=== PATIENT | female | born 1995 | race Caucasian/White ===

== ENCOUNTER 2017-02-16 14:51 | Emergency (ER) | payer BC ==
[~2017-02-16] VITALS: Ht 165.1 cm; Wt 96.9 kg
[2017-02-16 16:15] LABS: BLOOD UREA NITROGEN 14 mg/dL (7-18)
[2017-02-16 16:54] VITALS: BP 121/72
== END 2017-02-16 16:56 | disposition home or self-care (01) ==
LOC: ED 16:50
DX: R55 Syncope and collapse (principal)
CPT/HCPCS: 36415; 80048; 82040; 84703; 85025; 93005